=== PATIENT | male | born 1990 | race Two or more races ===

== ENCOUNTER 2024-09-26 05:25 | Emergency (ER) | payer OTHER ==
[~2024-09-26] VITALS: Ht 162.6 cm; Wt 127.0 kg
[2024-09-26 05:56] VITALS: BP 159/98; TEMP 98.4; O2SAT 97
== END 2024-09-26 06:34 ==
LOC: ER 05:27
DX: Z00.00 Encounter for general adult medical examination without abnormal findings (principal); F41.9 Anxiety disorder, unspecified